=== PATIENT | female | born 1985 | race Caucasian/White ===

== ENCOUNTER 2017-01-27 06:40 | Inpatient (IN) | payer OTHER ==
[2017-01-27 07:57] VITALS: BMI 35.0
--- NOTE | 2017-01-27 08:22 | HP ---
Past Medical History - Admission History of Present Illness: 31 yo @ 39 2/7 wks by LMP consistent with first trimester ultrasound, EDC complicated by: 1. Prior CD, desires repeat 2. Multiparous desiring permanent sterilization Patient presents for scheduled delivery and bilateral tubal ligation. She reports no complaints. She reports movement, denies leakage of fluid, contractions or vaginal bleeding. History Source: Patient Limitations to Obtaining History: No Limitations - Past Medical History Cardiovascular: No: HTN Pulmonary: No: Asthma Gastrointestinal: No: GERD ...: 2 ...Para: 1 ...Term: 1 ...: 0 ...Spon : 0 ...Induced : 0 ...Multiple Gestation: 0 ...EDC by Sono: 02/01/17 Heme/Onc: No: Anemia - Past Surgical History Past Surgical History: Yes: Hx Myomectomy: No Hx Transabdominal Cerclage: No - Smoking History Smoking history: Never smoked Have you smoked in the past 12 months: No - Alcohol/Substance Use Hx Alcohol Use: No History of Substance Use: reports: None - Social History History of Recent Travel: No Home Medications - Allergies Allergies/Adverse Reactions: Allergies Allergy/AdvReac Type Severity Reaction Status Date / Time No Known Allergies Allergy Verified 01/27/17 10:16 Family Disease History - Family Disease History Family History: Denies Review of Systems - Review of Systems Constitutional: reports: No Symptoms HENT: reports: No Symptoms Neck: reports: No Symptoms Cardiovascular: reports: No Symptoms Genitourinary: reports: No Symptoms Integumentary: reports: No Symptoms Neurological: reports: No Symptoms Hematology/Lymphatic: reports: No Symptoms Physical Exam - Maternity Vital Signs: Vital Signs Temperature 99.0 F 01/27/17 07:49 Pulse Rate 64 01/27/17 07:49 Respiratory Rate 20 01/27/17 07:49 Blood Pressure 110/70 01/27/17 07:49 O2 Sat by Pulse Oximetry (%) Constitutional: Yes: Well Nourished, No Distress, Calm Cardiovascular: Yes: Regular Rate and Rhythm Lungs: Clear to auscultation - Abdominal Exam/OB Number of Fetuses: Single Presentation: Vertex Contractions: No Category: I Accelerations: Non-Uniform Decelerations: None - Physical Exam Edema: No Psychiatric: Yes: Alert, Oriented - Labs Lab Results: PNL: O positive, antibody negative, RPR NR, Varicella Immune, Rubella Immune, HBSAg negative; Fragile X negative; CF negative; SMA negative: HIV negative; Hg SOPHIA AA; GCT WNL; GBS neg Hemorrhage Risk Assessment - Risk Factors Medium Risk Factors: Yes: None High Risk Factors: Yes: None Risk Score: 1 Risk Level: Medium Risk Assessment/Plan 31 yo @ 39 2/7 wks for repeat delivery, bilateral tubal ligation. 1. Admit to L&D 2. Consents reviewed and signed. Reviewed risks including infection, bleeding, damage to surrounding organs such as bowel, bladder ureters, injury to infant, risk of tubal ligation failure and regret. 3. Ancef client service consultant to OR 4. Will proceed to CD
[2017-01-27] MEDS ORDERED: oxyCODONE HCL 5 MG TABLET PO PRN (09:54)
[2017-01-27] MEDS ORDERED: WITCH HAZEL 50% (TUCKS) 40 PAD/JAR PAD TP PRN (09:54)
[2017-01-27] MEDS ORDERED: METHYLERGONOVINE MALEATE 0.2 MG/1 ML AMP IM PRN (09:54)
[2017-01-27] MEDS ORDERED: SENNOSIDES/DOCUSATE COMBO (SENNA PLUS) TABLET (UD) PO PRN (09:54)
--- NOTE | 2017-01-27 09:54 | PN ---
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
[2017-01-27] MEDS ORDERED: DEXTROSE 5%-LACTATED RINGERS 1,000 ML IV SCH (10:00)
[2017-01-27] MEDS ORDERED: CITRIC ACID/SODIUM CITRATE 30 ML UNIT-DOSE CUP PO ONE (10:08)
[2017-01-27] MEDS ORDERED: ELECTROLYTE-148 SOLN 1,000 ML IV SCH (10:15)
[2017-01-27] MEDS: IBUPROFEN 800 MG/8 ML IJ IVPB PRN ×2 (11:18→20:54)
--- NOTE | 2017-01-27 12:03 | OP ---
DATE OF OPERATION: 01/27/2017 ATTENDING PHYSICIAN: Naomie Hansen MD PREOPERATIVE DIAGNOSIS: Intrauterine at 39 and 2 weeks with prior delivery desiring permanent sterilization. POSTOPERATIVE DIAGNOSIS: Intrauterine at 39 and 2 weeks with prior delivery desiring permanent sterilization. SURGERY: Repeat delivery via Pfannenstiel skin incision with bilateral tubal ligation. SURGEON: Naomie Hansen MD CIGAR WRAPPER TENDER AUTOMATIC: Jesus Allen MD ANESTHESIA: Shveta Sen, DO, spinal. URINE OUTPUT: 600. IV FLUIDS: 1200. ESTIMATED BLOOD LOSS: 600 mL. FINDINGS: Female in OP position, Apgars 9, 9. Weight was 7 pounds, 13 ounces and 19-1/2 inches. INDICATIONS: The patient is a 31-year-old 2, para 1 prior delivery desiring repeat and permanent sterilization. She was counseled regarding risks, benefits, alternatives, and complications of the procedure including infection, bleeding, damage to surrounding organs such as bowel, bladder, ureters. She expressed understanding and was brought to the operating room. DESCRIPTION OF PROCEDURE: When anesthesia was found to be adequate, the patient was prepped and draped in the normal sterile fashion in the dorsal supine position with a leftward tilt. Approximately an 11-cm skin incision was made along the previous uterine skin scar and carried down to the underlying rectus muscle using the Bovie electrocautery. The fascia was taken midline and extended laterally using Leavitt scissors. The inferior portion of the incision was tented up using Marcelina clamps, dissected off the underlying rectus muscle using the Leavitt scissors. Attention was brought to the superior portion, which in a similar fashion was tented up using Marcelina clamps and dissected off the underlying rectus muscle using Leavitt scissors. The muscles were in the midline, and the peritoneum was entered bluntly. At this point in time, evaluation noted that there were adhesions from the bladder to the anterior lower uterine segment. The bladder flap was dissected sharply. Good hemostasis was noted. Hysterotomy was performed and extended superior laterally using the bandage scissors. Amniotomy was performed. Clear fluid was noted. was found to be in OP position and oblique position. His head was brought to the hysterotomy site, and the head was delivered followed by shoulders and body without difficulty. The hysterotomy was closed using 0 Biosyn in running fashion with 2nd layer as imbricated layer. Attention was brought to the left fallopian tube. It was followed out to the fimbriated end. A 2-cm portion was suture ligated using a 2-0 plain gut. Attention was brought to the right fallopian tube. Pedicles were cauterized and good hemostasis was noted. Attention was brought to the right fallopian tube, which was followed to its fimbriated end. A 2-cm portion was suture ligated using a 2-0 plain gut. Pedicles were cauterized, and good hemostasis was noted. The peritoneum was closed using 2-0 Biosyn in a running fashion. The muscles were reapproximated using 0 Biosyn in interrupted fashion. The fascia was closed using 0 Vicryl in a running fashion. The subcutaneous fat was closed using 0 Biosyn in running fashion. The skin was approximated using 3-0 Vicryl. The patient tolerated the procedure well. Estimated blood loss was 600 mL. The patient was then brought to the recovery room in stable condition. Trevor [id number] MTDD
[2017-01-27] MEDS ORDERED: ONDANSETRON 4 MG/2 ML VIAL IVPB PRN (12:43)
[2017-01-28] MEDS: IBUPROFEN 800 MG/8 ML IJ IVPB PRN (06:17)
[2017-01-28 08:20] LABS: BASOPHIL 0.9 % (0-2.0); EOSINOPHIL 1.1 % (0-4.5); MCH 28.9 pg (25.7-33.7); MCHC 32.4 g/dl (32.0-36.0); MEAN CELL VOLUME 89.3 fl (80-96); MEAN PLT VOLUME 9.4 fl (7.5-11.1); NEUTROPHILS 74.5 % (42.8-82.8); PLATELET COUNT 143 K/MM3 (134-434); RDW 16.1 % (11.6-15.6); WHITE BLOOD COUNT 9.9 K/mm3 (4.0-10.0)
[2017-01-28] MEDS ORDERED: BISACODYL 10 MG SUPP.RECT RC PRN (09:54)
[2017-01-28] MEDS: PRENATAL VITAMINS W/ FOLIC ACID TABLET (FP) PO SCH ×2 (10:01→10:02)
[2017-01-28] MEDS: ENOXAPARIN NA (PORCINE) 40 MG/0.4 ML DISP.SYRIN SQ SCH (10:01)
[2017-01-28] MEDS ORDERED: ACETAMINOPHEN 325 MG TABLET (FP) ONE (10:24)
--- NOTE | 2017-01-28 10:59 | PN ---
Post Progress Note - Subjective Subjective: 31 yo P2 now s/p Repeat c/s and BTL no complains, voiding, ambulating, tolerating PO Post Day: 1 Type of Delivery: Repeat C/S Vital Signs: Vital Signs Temperature 98.5 F 01/28/17 09:55 Pulse Rate 70 01/28/17 09:55 Respiratory Rate 20 01/28/17 09:55 Blood Pressure 100/64 01/28/17 09:55 O2 Sat by Pulse Oximetry (%) 99 01/27/17 10:45 Breast Exam: Yes: Soft Uterus: Yes: Fundus Firm Incision: Yes: Dressing dry and intact Abdomen/GI: Yes: Abdomen soft Lochia: Yes: Rubra Lochia, amount: Small Extremities: Yes: Calves non-tender Activity: Ambulating - Labs Labs: CBC WBC 9.9 K/mm3 (4.0-10.0) 01/28/17 07:45 RBC 4.17 M/mm3 (3.60-5.2) 01/28/17 07:45 Hgb 12.0 GM/dL (10.7-15.3) 01/28/17 07:45 Hct 37.2 % (32.4-45.2) 01/28/17 07:45 MCV 89.3 fl (80-96) 01/28/17 07:45 MCH 28.9 pg (25.7-33.7) 01/28/17 07:45 MCHC 32.4 g/dl (32.0-36.0) 01/28/17 07:45 RDW 16.1 % (11.6-15.6) H 01/28/17 07:45 Plt Count 143 K/MM3 (134-434) 01/28/17 07:45 MPV 9.4 fl (7.5-11.1) 01/28/17 07:45 Neutrophils % 74.5 % (42.8-82.8) 01/28/17 07:45 Lymphocytes % 18.5 % (8-40) 01/28/17 07:45 Monocytes % 5.0 % (3.8-10.2) 01/28/17 07:45 Eosinophils % 1.1 % (0-4.5) 01/28/17 07:45 Basophils % 0.9 % (0-2.0) D 01/28/17 07:45 Assessment/Plan 31yo P2 s/p c/s and BTL VSS, Afibrile, adequate urine output Doing well, ambulating, breast feeding Tolerating regular diet, pain controlled Continue routing post-op care
[2017-01-28] MEDS: SIMETHICONE 80 MG TAB.CHEW (FP) PO PRN ×2 (17:31→21:35)
[2017-01-28] MEDS: IBUPROFEN 600 MG TABLET (FP) PO PRN ×2 (17:31→21:35)
[2017-01-28] MEDS: ACETAMINOPHEN 325 MG TABLET (FP) PO PRN ×2 (17:32→21:35)
--- NOTE | 2017-01-28 18:19 | PN ---
Progress Note (short form) - Note Progress Note: ANESTHESIA POSTOP: 31 yo female, POD #1, doing well s/p spinal for c/section and BTL. Tolerating PO. Pain adequately controlled. Ambulating. No headache.
[2017-01-29] MEDS: SIMETHICONE 80 MG TAB.CHEW (FP) PO PRN ×2 (08:37→19:33)
[2017-01-29] MEDS: IBUPROFEN 600 MG TABLET (FP) PO PRN ×2 (08:37→19:34)
[2017-01-29] MEDS: ACETAMINOPHEN 325 MG TABLET (FP) PO PRN ×2 (08:38→19:33)
--- NOTE | 2017-01-29 08:56 | PN ---
Post Progress Note - Subjective Subjective: No complaints, ambulating, passing flatus Post Day: 2 Type of Delivery: Repeat C/S Vital Signs: Vital Signs Temperature 98.8 F 01/28/17 22:00 Pulse Rate 69 01/28/17 22:00 Respiratory Rate 20 01/28/17 22:00 Blood Pressure 102/48 01/28/17 22:00 O2 Sat by Pulse Oximetry (%) 99 01/27/17 10:45 Breast Exam: Yes: Soft Uterus: Yes: Fundus Firm, Fundus below umbilicus, Non-tender Incision: Yes: Dressing dry and intact Abdomen/GI: Yes: Abdomen soft Lochia: Yes: Rubra Lochia, amount: Small Extremities: Yes: Edema (trace) Perineum: Yes: Intact Activity: Ambulating - Labs Labs: CBC WBC 9.9 K/mm3 (4.0-10.0) 01/28/17 07:45 RBC 4.17 M/mm3 (3.60-5.2) 01/28/17 07:45 Hgb 12.0 GM/dL (10.7-15.3) 01/28/17 07:45 Hct 37.2 % (32.4-45.2) 01/28/17 07:45 MCV 89.3 fl (80-96) 01/28/17 07:45 MCH 28.9 pg (25.7-33.7) 01/28/17 07:45 MCHC 32.4 g/dl (32.0-36.0) 01/28/17 07:45 RDW 16.1 % (11.6-15.6) H 01/28/17 07:45 Plt Count 143 K/MM3 (134-434) 01/28/17 07:45 MPV 9.4 fl (7.5-11.1) 01/28/17 07:45 Neutrophils % 74.5 % (42.8-82.8) 01/28/17 07:45 Lymphocytes % 18.5 % (8-40) 01/28/17 07:45 Monocytes % 5.0 % (3.8-10.2) 01/28/17 07:45 Eosinophils % 1.1 % (0-4.5) 01/28/17 07:45 Basophils % 0.9 % (0-2.0) D 01/28/17 07:45 Assessment/Plan 31yo P1 s/p repeat LT C/S, doing well stable, afebrile. care instructions reviewed. Continue routine postop care. Ambulation encouraged
[2017-01-29] MEDS: ENOXAPARIN NA (PORCINE) 40 MG/0.4 ML DISP.SYRIN SQ SCH (09:24)
[2017-01-29] MEDS: PRENATAL VITAMINS W/ FOLIC ACID TABLET (FP) PO SCH (09:24)
--- NOTE | 2017-01-29 12:48 | PATH ---
Surgical Pathology Report Patient Name: AUDRA BRADEN [facility]. Rec. #: [id number] /Age/Gender: 1985 (Age: 31) / F Account: [id number] Location: [facility] OBS/DISABILITY BENEFITS SPECIALIST Taken: 01/27/2017 Received: 01/28/2017 Reported: 01/29/2017 Physicians: Naomie Hansen Specimen(s) Received A: PLACENTA B: PORTION OF LEFT FALLOPIAN TUBE C: PORTION OF RIGHT FALLOPIAN TUBE Clinical History x1 Repeat and bilateral tubal ligation Final Diagnosis A. PLACENTA, DELIVERY: THIRD TRIMESTER PLACENTA WITH 3 VESSEL UMBILICAL CORD AND UNREMARKABLE PLACENTAL MEMBRANES. B. LEFT FALLOPIAN TUBE, PARTIAL SALPINGECTOMY: FULL LUMINAL PORTION OF UNREMARKABLE FALLOPIAN TUBE. C. RIGHT FALLOPIAN TUBE, PARTIAL SALPINGECTOMY: FULL LUMINAL PORTION OF UNREMARKABLE FALLOPIAN TUBE. Electronically Signed Hayden Reeves M.D. Gross Description A. The specimen is received fresh labeled placenta and is a 652 gram, 17 x 17 x 3 cm. placenta with attached membranes and umbilical cord. The attached membranes are glistening and translucent and insert marginally. The umbilical cord measures 34 cm. in length and averages 1.5 cm. in diameter. The cord inserts eccentrically, 6.5 cm. to the nearest margin. No true knots or strictures are identified. Cut surface of the umbilical cord reveals 3 vessels. The surface is james-blue with minimal fibrin deposition and appropriate caliber vessels. The maternal surface is lobulated and appears complete with no adherent blood clots or areas of thinning Sectioning reveals red-brown, spongy parenchyma. No lesions are identified. Pe Electrical Engineer sections are submitted in three cassettes as follows: 1- membrane rolls and umbilical cord; 2-3- full thickness sections of placenta. B. Received in formalin labelled "portion of left fallopian tube" is a 1.0 cm long x 0.4 cm in diameter portion of tissue grossly consistent with a portion of fallopian tube. The fimbriated end is not identified. No focal lesions are identified. Sectioned and totally submitted in one cassette. C. Received in formalin labelled "portion of right fallopian tube" is a 1.7 cm long by up to 0.8 cm in diameter portion of tissue grossly consistent with a portion of fallopian tube. The fimbriated end is not identified. No focal lesions are identified. Sectioned and totally submitted in one cassette. [facility]/01/28/2017 [facility]/01/28/2017
--- NOTE | 2017-01-30 00:11 | DS ---
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 Vital Signs: Vital Signs Temperature 98.7 F 01/29/17 22:00 Pulse Rate 65 01/29/17 22:00 Respiratory Rate 18 01/29/17 22:00 Blood Pressure 112/62 01/29/17 22:00 O2 Sat by Pulse Oximetry (%) 99 01/27/17 10:45 Labs: CBC, BMP 01/28/17 07:45 Delivery - Delivery Section: Repeat Type of Anesthesia: Spinal Episiotomy/Laceration: None EBL (cc): 600 Delivery, Single - Stages of Labor Date of Delivery: 01/27/17 Time of Delivery: 09:00 Time Placenta Delivered: 09:01 - Condition of Infant Personnel Security Specialist/Robotics Technologist Present: Yes Name: Shira Garcia Gender: Female Weight: 7 lb 13 oz Total Hours ROM (Hrs/Mins): 0hrs 2min - 1 Minute Total Score: 9 5 Minutes Total Score: 9 - [place] Feeding Plan Initial Plan: Exclusive throughout hospitalization Discharge Summary Reason For Visit: REPEAT Current Active Problems delivery delivered (Acute) Procedures: Principal: delivery and bilateral ligation Hospital Course: Patient underwent delivery POD# 1 ambulating, tolerating oral intake, voidning and passing flatus. CBC without signs of anemia. She remained afebrile, vital signs stable, for discharge home POD # 3 Condition: Good - Instructions Diet, Activity, Other Instructions: Physical activity Resume your normal everyday activity as tolerated no heavy lifting or exercise until seen by your surgeon. You may walk unlimited zoe of and climb stairs. You may resume driving the car when you feel safe and comfortable behind the wheel. No sexual activity as instructed. Wound care If you have a bandage, leave it on, and keep dry for 48-72 hours. After that time discard the outer bandage. If they are tapes on the skin under the out of bandage leave them in place. They will peel off in the next 7 to 10 days. Do Not Peel them off. You may shower the day after surgery. If there are tapes present on the skin, you may shower over them. Diet There are no dietary restrictions. Eat healthy, high-fiber foods. Drink 6 to 8 glasses of liquid each day. This will assist in keeping your bowels are regular. Pain management You may take Tylenol or acetaminophen or Ibuprofen (for example, Motrin, Advil etc.) from my pain prescription medication is ordered should be taken as prescribed for moderate to severe pain. Call MD for any of the following: Severe pain not relieved by medication Fever of 101 or higher Excessive bleeding or drainage on dressing Inability to urinate [facility] MOVING CONSULTANT Reference #: [id number] Referrals: Naomie Hansen MD [Staff Physician] - Disposition: HOME - Home Medications Comprehensive Discharge Medication List: Ambulatory Orders Vitamins (Sjr) - 1 tab PO DAILY 01/27/17 Oxycodone HCl/Acetaminophen [Percocet 5-325 mg Tablet -] 1 - 2 tab PO Q6H #10 tab MDD 4 01/30/17
--- NOTE | 2017-01-30 00:22 | PN ---
Post Progress Note - Subjective Subjective: Patient without acute complaints. Reports tolerating oral intake without nausea or vomiting. Ambulating without dizziness. Denies fevers or chills. Pain well controlled with oral pain medication. without difficulty. Passing flatus. Post Day: 3 Type of Delivery: Repeat C/S Vital Signs: Vital Signs Temperature 98.7 F 01/29/17 22:00 Pulse Rate 65 01/29/17 22:00 Respiratory Rate 18 01/29/17 22:00 Blood Pressure 112/62 01/29/17 22:00 O2 Sat by Pulse Oximetry (%) 99 01/27/17 10:45 Breast Exam: Yes: Soft Uterus: Yes: Fundus Firm Incision: Yes: Dressing dry and intact, Sutures intact. No: Redness, Oozing Abdomen/GI: Yes: Abdomen soft, Passing flatus, Tolerating PO. No: Tender Lochia: Yes: Serosa Lochia, amount: Small Extremities: Yes: Calves non-tender, Edema (trace) Activity: Ambulating - Labs Labs: CBC WBC 9.9 K/mm3 (4.0-10.0) 01/28/17 07:45 RBC 4.17 M/mm3 (3.60-5.2) 01/28/17 07:45 Hgb 12.0 GM/dL (10.7-15.3) 01/28/17 07:45 Hct 37.2 % (32.4-45.2) 01/28/17 07:45 MCV 89.3 fl (80-96) 01/28/17 07:45 MCH 28.9 pg (25.7-33.7) 01/28/17 07:45 MCHC 32.4 g/dl (32.0-36.0) 01/28/17 07:45 RDW 16.1 % (11.6-15.6) H 01/28/17 07:45 Plt Count 143 K/MM3 (134-434) 01/28/17 07:45 MPV 9.4 fl (7.5-11.1) 01/28/17 07:45 Neutrophils % 74.5 % (42.8-82.8) 01/28/17 07:45 Lymphocytes % 18.5 % (8-40) 01/28/17 07:45 Monocytes % 5.0 % (3.8-10.2) 01/28/17 07:45 Eosinophils % 1.1 % (0-4.5) 01/28/17 07:45 Basophils % 0.9 % (0-2.0) D 01/28/17 07:45 Assessment/Plan 30 yo POD # 3 s/p repeat CD + BTL, afebrile, vital signs stable, doing well 1. Patient stable for discharge home today. 2. Patient encouraged to contact MD for: - Severe pain not controlled by oral pain medication - Fevers or chills - Nausea or vomiting, intolerance of oral intake - Incision redness, tenderness or discharge 3. Patient to follow up in office in 1-2 weeks for incision check, 4-6 weeks for visit
[2017-01-30] MEDS: IBUPROFEN 600 MG TABLET (FP) PO PRN (02:16)
[2017-01-30] MEDS: SIMETHICONE 80 MG TAB.CHEW (FP) PO PRN (02:16)
[2017-01-30] MEDS: ACETAMINOPHEN 325 MG TABLET (FP) PO PRN (02:17)
[2017-01-30 08:47] LABS: BASOPHIL 0.3 % (0-2.0); EOSINOPHIL 2.4 % (0-4.5); MCH 29.1 pg (25.7-33.7); MCHC 32.5 g/dl (32.0-36.0); MEAN CELL VOLUME 89.3 fl (80-96); MEAN PLT VOLUME 8.7 fl (7.5-11.1); NEUTROPHILS 69.9 % (42.8-82.8); PLATELET COUNT 187 K/MM3 (134-434); RDW 16.1 % (11.6-15.6); WHITE BLOOD COUNT 8.6 K/mm3 (4.0-10.0)
[2017-01-30 09:00] VITALS: BP 118/72; PULSE 61; TEMP 98
[2017-01-30] MEDS: PRENATAL VITAMINS W/ FOLIC ACID TABLET (FP) PO SCH (10:25)
[2017-01-30] MEDS: ENOXAPARIN NA (PORCINE) 40 MG/0.4 ML DISP.SYRIN SQ SCH (10:25)
== END 2017-01-30 12:30 | disposition home or self-care (01) | DRG 540 ==
LOC: JLDR 06:40 → J3W 11:36
PROVIDERS: ADMIT Obstetrics & Gynecology; ATTEND Obstetrics & Gynecology
PROC: 10D00Z1 Extraction of Products of Conception, Low, Open Approach (ICD-10-PCS; principal; 2017-01-27)
PROC: 0U570ZZ Destruction of Bilateral Fallopian Tubes, Open Approach (ICD-10-PCS; 2017-01-27)
DX: O34.211 Maternal care for low transverse scar from previous cesarean delivery (principal); Z3A.39 39 weeks gestation of pregnancy; Z37.0 Single live birth; Z30.2 Encounter for sterilization
CPT/HCPCS: 36415; 85025; 86762; 87340; 88302-TC; 88307-TC